=== PATIENT | female | born 2000 | race American Indian/Alaskan Native ===

== ENCOUNTER 2019-04-10 18:19 | Emergency (ER) | payer SELFPAY ==
[2019-04-11] MEDS ORDERED: levETIRAcetam 1000 MG/NS 0.75% 1,000 MG/100 ML BAG IV ONE (00:41)
--- NOTE | 2019-04-11 00:45 | Emergency Department Report ---
ED Seizure HPI - General Chief Complaint: Seizure Stated Complaint: SEIZURES Time Seen by Provider: 04/11/19 00:38 Source: patient Mode of arrival: Ambulatory Limitations: No Limitations - History of Present Illness Initial Comments: Patient is 19 years old female with history of seizure on Keppra 500 mg twice a day. Patient presented to the ER accompanied by her significant other stating that she had 2 seizure today. Patient stated that she run out of her medication one month ago. Patient denied any fever or chills. No injury. Patient is alert, oriented 3 in no acute distress. MD Complaint: seizure -: This afternoon Description of Episode: loss of consciousness, tonic-clonic movement Witnessed:: Yes Trauma: No Seizure History: known seizure disorder, history of non-compliance Place: home Possible Precipitating Event: none Associated Symptoms: denies other symptoms Treatments Prior to Arrival: none - Related Data Allergies Allergy/AdvReac Type Severity Reaction Status Date / Time No Known Allergies Allergy Unverified 04/10/19 19:55 ED Review of Systems ROS: Stated complaint: SEIZURES Other details as noted in HPI Comment: All other systems reviewed and negative Constitutional: denies: chills, fever Respiratory: denies: cough, shortness of breath, SOB with exertion, SOB at rest, wheezing Cardiovascular: denies: chest pain, palpitations Gastrointestinal: denies: abdominal pain, nausea, vomiting Genitourinary: denies: urgency, dysuria, frequency, hematuria Musculoskeletal: denies: back pain Neurological: denies: headache, weakness, numbness, paresthesias, confusion ED Physical Exam - General Limitations: No Limitations General appearance: alert, in no apparent distress - Head Head exam: Present: atraumatic, normocephalic, normal inspection - Eye Eye exam: Present: normal appearance - ENT ENT exam: Present: normal exam, normal orophraynx, mucous membranes moist - Neck Neck exam: Present: normal inspection, full ROM. Absent: tenderness, meningismus - Respiratory Respiratory exam: Present: normal lung sounds bilaterally - Cardiovascular Cardiovascular Exam: Present: regular rate, normal rhythm, normal heart sounds - GI/Abdominal GI/Abdominal exam: Present: soft, normal bowel sounds. Absent: distended, tenderness, guarding, rebound, rigid, organomegaly, mass, bruit, pulsatile mass, hernia - Extremities Exam Extremities exam: Present: normal inspection, full ROM, normal capillary refill. Absent: tenderness, pedal edema, calf tenderness - Back Exam Back exam: Present: normal inspection, full ROM. Absent: CVA tenderness (R), CV A tenderness (L), muscle spasm, paraspinal tenderness, vertebral tenderness - Neurological Exam Neurological exam: Present: alert, oriented X3, CN II-XII intact, normal gait, reflexes normal. Absent: motor sensory deficit - Psychiatric Psychiatric exam: Present: normal mood - Skin Skin exam: Present: warm, intact, normal color ED Course Vital Signs 04/10/19 04/11/19 19:47 01:12 Temperature 98.5 F 97.4 F L Pulse Rate 94 H 69 Respiratory 18 15 Rate Blood Pressure 128/67 Blood Pressure 127/85 [Right] O2 Sat by Pulse 99 98 Oximetry ED Medical Decision Making - Lab Data Result diagrams: 04/11/19 01:02 04/11/19 01:02 - Medical Decision Making Patient is 19 years old female with history of seizure on Keppra 500 mg twice a day. Patient presented to the ER accompanied by her significant other stating that she had 2 seizure today. Patient stated that she run out of her medication one month ago. Patient denied any fever or chills. No injury. Patient is alert, oriented 3 in no acute distress. Labs reviewed and is unremarkable. Patient received 1 g of Keppra IV. No seizure activity observed in the ER. Patient given prescription for Keppra 500 mg twice a day and advised to follow-up with her neurologist in the next 2-3 days. Patient also advised to return to the ER if symptoms are not improved. Critical care attestation.: If time is entered above; I have spent that time in minutes in the direct care of this critically ill patient, excluding procedure time. ED Disposition Clinical Impression: Seizure Disposition: DC-01 TO HOME OR SELFCARE Is pt being admited?: No Condition: Stable Instructions: Recurrent Seizures Adult (ED) Referrals: [facility] [Provider Group] - 3-5 Days
[2019-04-11 01:13] VITALS: BP 127/85
[2019-04-11 01:21] LABS: Basophils # (Auto) 0.1 K/mm3 (0.0-0.1); Basophils % (Auto) 0.5 % (0.0-1.8); Eosinophils # (Auto) 0.1 K/mm3 (0.0-0.4); Eosinophils % (Auto) 0.5 % (0.0-4.3); Hematocrit 41.4 % (30.3-42.9); Hemoglobin 13.9 gm/dl (10.1-14.3); Lymphocytes # (Auto) 2.6 K/mm3 (1.2-5.4); Lymphocytes % (Auto) 18.8 % (13.4-35.0); Mean Corpuscular HGB Conc 34 % (30-34); Mean Corpuscular Volume 87 fl (79-97); Monocytes # (Auto) 0.8 K/mm3 (0.0-0.8); Monocytes % (Auto) 5.6 % (0.0-7.3); Platelet Count 126 K/mm3 (140-440); Red Blood Count 4.74 M/mm3 (3.65-5.03); Red Cell Distribution Width 14.1 % (13.2-15.2)
[2019-04-11 01:37] LABS: Alanine Aminotransferase 7 units/L (7-56); Albumin 3.9 g/dL (3.9-5); BUN/Creatinine Ratio 23; Blood Urea Nitrogen 9 mg/dL (7-17); Calcium 7.4 mg/dL (8.4-10.2); Hemolysis Index 15
[2019-04-11 01:39] LABS: Bilirubin,Direct < 0.2 mg/dL (0-0.2)
[2019-04-11 01:53] LABS: Bacteria,Urine 1+ /HPF (Negative); Bilirubin,Urine NEG (Negative); Blood,Urine MOD (Negative); Color,Urine Yellow (Yellow); Mucus,Urine FEW /HPF; Protein,Urine <15 mg/dL mg/dL (Negative); Urobilinogen,Urine < 2.0 mg/dL (<2.0)
== END 2019-04-11 03:05 | disposition home or self-care (01) ==
LOC: ED 18:19
DX: R56.9 Unspecified convulsions (principal)
CPT/HCPCS: 36415; 80048; 80076; 81001; 84703; 85025; 87086; 96374; 99283; J1953

== ENCOUNTER 2021-09-21 20:03 | Emergency (ER) | payer OTHER, MEDICAID | END 2021-09-22 02:59 | disposition left against medical advice (07) | LOC: ED 20:03 | DX: Z04.1 Encounter for examination and observation following transport accident (principal); Z53.21 Procedure and treatment not carried out due to patient leaving prior to being seen by health care provider; V89.2XXA Person injured in unspecified motor-vehicle accident, traffic, initial encounter; Y93.89 Activity, other specified; Y92.89 Other specified places as the place of occurrence of the external cause; Y99.8 Other external cause status ==

== ENCOUNTER 2021-09-21 20:28 | Outpatient (CLI) | payer MEDICAID ==
[2021-09-21 21:00] VITALS: BP 116/56
--- NOTE | 2021-09-22 08:45 | Ultrasound Report ---
US OB follow up INDICATION / CLINICAL INFORMATION: EFW,CUCO, PLACENTA, CERVIX COMPARISON: None available. TECHNIQUE: Using a transcutaneous probe, multiple grayscale, color Doppler, and spectral Doppler imag es of the uterus and fetus were captured and stored. FINDINGS: A single cephalic fetus with heart rate of 143 bpm present. Amniotic fluid index is within normal limits, CUCO 13.2 cm. Grade 1 anterior placenta is present. No ultrasound abnormality of the placenta or placental interfac e is demonstrated. Maternal cervix measures 3.2 cm. Internal os appears closed. Biparietal Diameter = 6.8 cm = 27, 4 weeks, days Head Circumference = 24.0 cm = 26, 1 weeks, days Abdominal Circumference = 21.1 cm = 25, 5 weeks, days Femur Length = 4.7 cm = 25, 5 weeks, days Average Ultrasound Age (AUA) = 26, 2 weeks, days. EDC 12/26/2021 The clinical estimated gestational age based on last menstrual period of 03/18/2021 is 26 weeks 5 day s. Estimated weight = 858 g. Growth percentile 11. IMPRESSION: 1. Single living intrauterine gestation as detailed. Signer Name: Ancelmo Hodges II, MD Signed: 09/21/2021 11:37 PM Workstation Name: [id number]
== END 2021-09-21 22:47 | disposition home or self-care (01) ==
LOC: TRG 20:28 → APU 20:30 → TRG 22:47
PROVIDERS: ATTEND Obstetrics & Gynecology Gynecology
DX: O42.912 Preterm premature rupture of membranes, unspecified as to length of time between rupture and onset of labor, second trimester (principal); Z3A.26 26 weeks gestation of pregnancy
CPT/HCPCS: 36415; 76816; 82731; 84112